=== PATIENT | female | born 1980 | race African-American/Black ===

== ENCOUNTER 2017-08-26 15:16 | Emergency (ER) | payer OTHER ==
[~2017-08-26] VITALS: Ht 177.8 cm; Wt 119.7 kg
[~2017-08-26 15:16] MED LIST: ACID CONTROL20 MG PO; CLONIDINE1 EAC2 TD; HUMALOG MI100 UNIT/6 SC; LABETALOL HCL300 MG PO; LISINOPRIL20 MG PO; METFORMIN HCL500 MG PO; SILVADENE20 GM TP; TYLENOL WITH C1 EACH PO
[2017-08-26 16:06] LABS: HEMATOCRIT 37.4 % (36.0-46.0); HEMOGLOBIN 12.3 G/DL (11.9-15.5); MCH 26.9 PG (29.0-34.0); MCHC 32.9 G/DL (30.0-36.0); MCV 81.8 FL (83-99); PLATELET COUNT 267 K/uL (156-360); RBC DIS.WIDTH-CV 12.8 % (11.8-14.6); RBC DIS.WIDTH-SD 38.2 % (39-53); RED BLOOD COUNT 4.57 M/uL (3.80-5.20); WHITE BLOOD COUNT 9.5 K/uL (4.1-10.2)
[2017-08-26 18:07] VITALS: BP 198/118
== END 2017-08-26 18:10 | disposition home or self-care (01) ==
LOC: EME 15:16
DX: O20.0 Threatened abortion (principal); O16.1 Unspecified maternal hypertension, first trimester; Z3A.01 Less than 8 weeks gestation of pregnancy; O24.911 Unspecified diabetes mellitus in pregnancy, first trimester; Z79.4 Long term (current) use of insulin; Z88.0 Allergy status to penicillin
CPT/HCPCS: 76801; 81003; 84702; 85027; 99281; 99283

== ENCOUNTER 2018-01-14 17:28 | Outpatient (CLI) | payer OTHER ==
[2018-01-14] VITALS (17 sets, daily range): BP systolic 132–165; BP diastolic 73–94
[2018-01-14] MEDS ORDERED: ALDOMET500 MG PO (17:58)
[2018-01-14] MEDS ORDERED: LABETALOL HCL200 MG PO (17:58)
[2018-01-14] MEDS ORDERED: HUMALOG100 UNIT/1 SC ×3 (17:59→18:00)
[2018-01-14] MEDS ORDERED: PROCARDIA XL90 MG PO (17:59)
[2018-01-14] MEDS ORDERED: LEVEMIR100 UNIT/2 SC (18:01)
[2018-01-14 18:17] LABS: BASOPHIL (%) 0.5 % (0-1); BASOPHIL COUNT 0.1 K/uL (0-0.1); EOSINOPHIL COUNT 0.3 K/uL (0-0.3); HEMATOCRIT 29.2 % (36.0-46.0); HEMOGLOBIN 9.4 G/DL (11.9-15.5); IMMATURE GRANULOCYTE (%) 1.1 % (0.0-0.7); LYMPHOCYTE (%) 25.9 % (15-42); LYMPHOCYTE COUNT 2.8 K/uL (1.0-2.8); MCH 26.5 PG (29.0-34.0); MCHC 32.2 G/DL (30.0-36.0); MCV 82.3 FL (83-99); MONOCYTE (%) 7.6 % (3-12); MONOCYTE COUNT 0.8 K/uL (0-0.8); NEUTROPHIL (%) 61.9 % (45-76); NEUTROPHIL COUNT 6.6 K/uL (1.8-6.4); PLATELET COUNT 286 K/uL (156-360); RBC DIS.WIDTH-CV 13.5 % (11.8-14.6); RBC DIS.WIDTH-SD 40.5 % (39-53); RED BLOOD COUNT 3.55 M/uL (3.80-5.20); WHITE BLOOD COUNT 10.7 K/uL (4.1-10.2)
[2018-01-14 18:41] LABS: ALBUMIN 2.8 G/DL (3.2-4.8); ALKALINE PHOSPHATASE 36 IU/L (3-129); ALT (GPT) 11 IU/L (3-49); AST (GOT) 12 IU/L (2-34); CHLORIDE 108 MEQ/L (99-109); CREATININE 1.2 MG/DL (0.6-1.3); GFR ESTIMATE (CALCULATED) > 59 mL/min/; GLUCOSE 85 mg/dL (70-99); POTASSIUM 3.7 MEQ/L (3.7-5.4); SODIUM 137 MEQ/L (136-147); TOTAL BILIRUBIN 0.2 MG/DL (0.0-1.0); UREA NITROGEN (BUN) 15 mg/dL (9-23)
== END 2018-01-14 23:10 | disposition home or self-care (01) ==
LOC: LDRP-OP 17:28 → 2WEST 17:37
PROVIDERS: Obstetrics & Gynecology Obstetrics
DX: O10.31 Pre-existing hypertensive heart and chronic kidney disease complicating pregnancy (principal); I13.10 Hypertensive heart and chronic kidney disease without heart failure, with stage 1 through stage 4 chronic kidney disease, or unspecified chronic kidney disease; E11.22 Type 2 diabetes mellitus with diabetic chronic kidney disease; N18.9 Chronic kidney disease, unspecified; Z3A.27 27 weeks gestation of pregnancy
CPT/HCPCS: 59025; 76818; 80053; 85025; G0378